=== PATIENT | female | born 1970 | race Caucasian/White ===

== ENCOUNTER 2016-11-29 08:16 | Day surgery (SDC) | payer OTHER ==
[2016-11-15 15:31] VITALS: BMI 22.3
[~2016-11-29 08:16] MED LIST: DEXAMETHASONE SOD PHOSPHATE 10 MG/ML 1 ML VIAL IV ONE; HEPARIN SODIUM,PORCINE 5,000 UNIT/ML 1 ML VIAL SQ ONE; HYDROmorphone 1 MG/ML 1 ML SYRINGE IVP PRN; LACTATED RINGERS 1,000 ML IV ONE; MIDAZOLAM 2 MG/2 ML VIAL IV PRN; ONDANSETRON 4 MG/2 ML VIAL IVP ONE; Pre Op ABX Message 1 EACH MISC MISCELLANE ONE
[2016-11-29] MEDS ORDERED: ALPRAZolam 0.5 MG TAB PO ONE (09:22)
[2016-11-29] MEDS ORDERED: LIDOCAINE 1% 20 ML VIAL (10MG/ML) FOR IV START INTRADERMA ONE (09:30)
[2016-11-29] MEDS ORDERED: ceFAZolin 2 GM in SODIUM CHLORIDE 0.9% 100 ML IVPB ONE (10:02)
[2016-11-29] MEDS ORDERED: HEPARIN SODIUM,PORCINE 5,000 UNIT/ML 1 ML VIAL SQ ONE (13:54)
[2016-11-29] MEDS ORDERED: PROPOFOL 10 MG/ML 20 ML VIAL IV ONE (14:20)
[2016-11-29] MEDS ORDERED: fentaNYL (PF) 50 MCG/ML 2 ML AMP ONE (14:20)
[2016-11-29] MEDS ORDERED: MIDAZOLAM 2 MG/2 ML VIAL ONE (14:20)
[2016-11-29] MEDS ORDERED: ePHEDrine 50 MG/ML 1 ML AMP ONE (14:20)
[2016-11-29] MEDS ORDERED: SUCCINYLCHOLINE CHLORIDE 100 MG/5 ML SYR IV ONE (14:20)
[2016-11-29] MEDS ORDERED: LIDOCAINE 1% INJ 10MG/ML (20 ML MDV) ONE (14:20)
[2016-11-29] MEDS ORDERED: LIDOCAINE 1% INJ 10MG/ML (20 ML MDV) SQ ONE ×2 (14:44)
[2016-11-29] MEDS ORDERED: LACTATED RINGERS 1,000 ML IV ONE (14:55)
--- NOTE | 2016-11-29 15:01 | P.OP ---
Date of Procedure: 11/29/16 Preoperative Diagnosis: cystic nodularity 12:00 right breast with FNA showing atypia Postoperative Diagnosis: Dense breast tissue Procedure(s) Performed: Right breast biopsy Anesthesia: OSWALDA Surgeon: Lauryn Flanagan Estimated Blood Loss (ml): 10 IV fluids (ml): 400 Pathology: other (Right breast tissue) Condition: stable Disposition: PACU Indications for Procedure: Cystic nodularity 12:00 right breast, FNA atypia Operative Findings: Dense breast tissue Description of Procedure: Patient was taken to the operating room and following induction of anesthesia the right breast was prepped and draped in a sterile fashion. An incision was made over the palpable. Incision was carried down through the tissue was excised. Coronary tract was identified and excised with the specimen. After assured that hemostasis was attained the wound was well irrigated. The incision was then closed using 4-0 Monocryl. The specimen was painted for orientation. Specimen was sent to pathology. Steri-Strips applied to the skin. Patient tolerated procedure in stable fashion. All instrument and sponge counts were correct at the end of the case. She'll be noted that the dissection was carried down to the pectoralis major muscle.
--- NOTE | 2016-11-29 15:03 | P.DS ---
Providers Attending physician: Lauryn Flanagan Primary care physician: Jami Davis Plan - Discharge Summary New Discharge Prescriptions: HYDROcodone/APAP 5-325MG [[place] 5] 1 - 2 each PO Q4H PRN #20 tab PRN Reason: Pain Discharge Medication List ALPRAZolam [Alprazolam] 0.5 mg PO DAILY PRN 11/15/16 [History] Hyoscyamine Sulfate [Levsin] 0.125 mg PO DAILY PRN 11/15/16 [History] Levothyroxine Sodium [Synthroid] 75 mcg PO DAILY 11/15/16 [History] HYDROcodone/APAP 5-325MG [[place] 5] 1 - 2 each PO Q4H PRN #20 tab 11/29/16 [Rx] Follow up Appointment(s)/Referral(s): Lauryn Flanagan MD [STAFF PHYSICIAN] - 1 Week Activity/Diet/Wound Care/Special Instructions: Do not drive today Do not drive if taking pain medication May shower after 48 hours Patient wear bra at all times Discharge Disposition: HOME SELF-CARE
[2016-11-29 15:17] VITALS: TEMP 98
[2016-11-29] MEDS ORDERED: KETOROLAC 30 MG/ML 1 ML VIAL IVP ONE (15:32)
[2016-11-29 15:56] VITALS: RESP 16
[2016-11-29] MEDS ORDERED: HYDROcodone/APAP 5-325MG 1 EACH TAB PO ONE (15:57)
[2016-11-29 16:26] VITALS: BP 103/67; PULSE 84
--- NOTE | 2016-11-30 07:23 | USB ---
Reason for exam: additional evaluation requested from prior study. History: Family history of breast cancer in maternal grandmother at age 70. Benign US breast aspiration single RT of the right breast, October 28, 2016. US Breast Limited RT Right breast ultrasound demonstrates a 1.4 x 0.51 x 1.20cm cystic lesion at 12 o'clock and a 0.71 x 0.51 x 1.08cm lesion at 1 o'clock. These results were verbally communicated with the patient and result sheet given to the patient on 11/29/16. ASSESSMENT: Benign, BI-RAD 2 RECOMMENDATION: Follow-up diagnostic mammogram of both breasts in 10 months. Back on schedule for September 2017.
== END 2016-11-29 16:36 | disposition home or self-care (01) ==
LOC: OR 08:16
PROVIDERS: ATTEND Surgery
DX: N60.31 Fibrosclerosis of right breast (principal); N60.81 Other benign mammary dysplasias of right breast; N62 Hypertrophy of breast; N60.21 Fibroadenosis of right breast; N63 Unspecified lump in breast; K21.9 Gastro-esophageal reflux disease without esophagitis; Z79.899 Other long term (current) drug therapy; Z88.8 Allergy status to other drugs, medicaments and biological substances; F17.200 Nicotine dependence, unspecified, uncomplicated
CPT/HCPCS: 19301; 81025; 88307; 76642; J2250; J1644; J1100; J0690; J2405; J2001; J3010; J1885; J0330; J2704

== ENCOUNTER → 2017-05-26 | Outpatient (CLI) | payer OTHER ==
--- NOTE | 2017-05-26 11:42 | MM ---
Reason for exam: follow-up at short interval from prior study. Last mammogram was performed 7 months ago. History: Family history of breast cancer in maternal grandmother at age 70. Benign cyst aspiration of the left breast, November 2016. Benign US breast aspiration single RT of the right breast, October 28, 2016. Benign excisional biopsy of the right breast, October 2016. Physical Findings: Nurse Summary: 1.5 x 1cm nodule in the left breast at 2 o'clock (nurse ts). MG 3D Diag Mammo W/Cad PABLO Bilateral CC and MLO view(s) were taken. Prior study comparison: November 29, 2016, right breast US breast limited RT. October 28, 2016, right breast MG diagnostic mammo RT wo CAD. October 04, 2016, bilateral MG 3d diag mammo w/cad PABLO. The breast tissue is extremely dense which could obscure a lesion on mammography. Previous mammotome biopsy in the right breast. Palpable markers in the left upper outer quadrant. No significant change seen from 09/30/16 These results were verbally communicated with the patient and result sheet given to the patient on 05/26/17. ASSESSMENT: Incomplete: need additional imaging evaluation, BI-RAD 0 RECOMMENDATION: Ultrasound of the left breast. (targeted to palpable)
--- NOTE | 2017-05-26 11:44 | USB ---
Reason for exam: additional evaluation requested from abnormal screening. History: Family history of breast cancer in maternal grandmother at age 70. Benign cyst aspiration of the left breast, November 2016. Benign US breast aspiration single RT of the right breast, October 28, 2016. Benign excisional biopsy of the right breast, October 2016. US Breast Limited LT Left breast ultrasound demonstrates a 2.4 x 2.1 x 0.9cm oval, cystic lesion at 12 o'clock, a 1.3 x 1.6 x 1.0cm oval, cystic lesion at 2 o'clock and a 1.5 x 1.7 x 1.1cm oval, cystic lesion at 3 o'clock. These results were verbally communicated with the patient and result sheet given to the patient on 05/26/17. ASSESSMENT: Benign, BI-RAD 2 RECOMMENDATION: Routine screening mammogram of both breasts in 1 year.
== END | disposition home or self-care (01) ==
LOC: RADMAMWWP 10:15
PROVIDERS: ATTEND Surgery
DX: N60.01 Solitary cyst of right breast (principal); N60.02 Solitary cyst of left breast; R92.8 Other abnormal and inconclusive findings on diagnostic imaging of breast
CPT/HCPCS: 76642; G0204; G0279

== ENCOUNTER → 2018-01-03 | Outpatient (CLI) | payer BC ==
[2018-01-03 11:10] LABS: T4, Free (Free Thyroxine) 1.2 ng/dL (0.78-2.19)
== END | disposition home or self-care (01) ==
LOC: LABWHC1 10:11
PROVIDERS: ATTEND Family Medicine
DX: E03.9 Hypothyroidism, unspecified (principal)
CPT/HCPCS: 36415; 84439; 84443

== ENCOUNTER → 2020-06-24 | Outpatient (CLI) | payer BC ==
--- NOTE | 2020-06-25 10:49 | MM ---
Reason for exam: screening (asymptomatic). Last mammogram was performed 3 years and 1 month ago. History: Family history of breast cancer in maternal grandmother at age 70. Benign cyst aspiration of the left breast, November 2016. Benign US breast aspiration single RT of the right breast, October 28, 2016. Benign excisional biopsy of the right breast, October 2016. Physical Findings: A clinical breast exam by your physician is recommended on an annual basis and results should be correlated with mammographic findings. MG 3D Screening Mammo W/Cad Bilateral CC and MLO view(s) were taken. Prior study comparison: May 26, 2017, bilateral MG 3d diag mammo w/cad PABLO. October 28, 2016, right breast MG diagnostic mammo RT wo CAD. The breast tissue is extremely dense which could obscure a lesion on mammography. Finding #1: There is a 20 mm equal density (isodense), oval mass in the upper inner quadrant of the left breast. Finding #2: There are typically benign calcifications in both breasts. Previous mammotome biopsy in the right breast. There is a chronic nodularity in the right breast is stable. ASSESSMENT: Incomplete: need additional imaging evaluation, BI-RAD 0 RECOMMENDATION: Special view mammogram of the left breast. If lesion persists on supplemental views, image directed ultrasound is recommended. [facility] will attempt to contact patient to return for supplemental views and ultrasound if indicated.
== END | disposition home or self-care (01) ==
LOC: RADMAMWWP 08:05
PROVIDERS: ATTEND Family Medicine
DX: Z12.31 Encounter for screening mammogram for malignant neoplasm of breast (principal)
CPT/HCPCS: 77063; 77067

== ENCOUNTER → 2020-07-06 | Outpatient (CLI) | payer BC ==
--- NOTE | 2020-07-06 13:23 | MM ---
Reason for exam: additional evaluation requested from abnormal screening. Last mammogram was performed less than 1 month ago. History: Family history of breast cancer in maternal grandmother at age 70. Benign cyst aspiration of the left breast, November 2016. Benign US breast aspiration single RT of the right breast, October 28, 2016. Benign excisional biopsy of the right breast, October 2016. Took hormonal contraceptives beginning at age 17. Physical Findings: Nurse did not find any significant physical abnormalities on exam. MG 3D Work Up W/Cad LT Spot compression CC, spot compression MLO, and LM view(s) were taken of the left breast. Prior study comparison: June 24, 2020, bilateral MG 3d screening mammo w/cad. May 26, 2017, bilateral MG 3d diag mammo w/cad PABLO. The breast tissue is heterogeneously dense. This may lower the sensitivity of mammography. A couple underlying circumscribed masses measuring up to 2.0cm at 11-1 o'clock. These results were verbally communicated with the patient and result sheet given to the patient on 07/06/20. ASSESSMENT: Incomplete: need additional imaging evaluation, BI-RAD 0 RECOMMENDATION: Ultrasound of the left breast.
--- NOTE | 2020-07-06 13:25 | USB ---
Reason for exam: additional evaluation requested from abnormal screening. History: Family history of breast cancer in maternal grandmother at age 70. Benign cyst aspiration of the left breast, November 2016. Benign US breast aspiration single RT of the right breast, October 28, 2016. Benign excisional biopsy of the right breast, October 2016. Took hormonal contraceptives beginning at age 17. US Breast Workup LT Left complete breast ultrasound includes all four quadrants, the retroareolar region and axilla. Finding demonstrates a 2.1 x 1.0 x 2.1cm cystic lesion at 2 o'clock and a 1.9 x 1.4 x 2.0cm cystic lesion at 11 o'clock, the largest to two. Multiple cystic areas. Patient's annual exam recommended to be performed in diagnostic clinic. These results were verbally communicated with the patient and result sheet given to the patient on 07/06/20. ASSESSMENT: Probably benign, BI-RAD 3 RECOMMENDATION: Follow-up diagnostic mammogram of both breasts in 1 year.
== END | disposition home or self-care (01) ==
LOC: RADMAMWWP 09:39
PROVIDERS: ATTEND Family Medicine
DX: R92.8 Other abnormal and inconclusive findings on diagnostic imaging of breast (principal)
CPT/HCPCS: 77061; 77065

== ENCOUNTER → 2021-10-11 | Outpatient (CLI) | payer BC ==
--- NOTE | 2021-10-11 11:50 | MM ---
Reason for exam: additional evaluation requested from prior study. Last mammogram was performed 1 year and 3 months ago. History: Patient is postmenopausal. Family history of breast cancer in maternal grandmother at age 70. Benign cyst aspiration of the left breast, November 2016. Benign US breast aspiration single RT of the right breast, October 28, 2016. Benign excisional biopsy of the right breast, October 2016. Took hormonal contraceptives beginning at age 17. Physical Findings: Nurse did not find any significant physical abnormalities on exam. MG 3D Diag Mammo W/Cad PABLO Bilateral CC and MLO view(s) were taken. Prior study comparison: July 06, 2020, left breast MG 3d work up w/cad LT. June 24, 2020, bilateral MG 3d screening mammo w/cad. The breast tissue is extremely dense which could obscure a lesion on mammography. Stable benign calcifications. There is no discrete abnormality. No significant new findings when compared with previous films. These results were verbally communicated with the patient and result sheet given to the patient on 10/11/21. ASSESSMENT: Benign, BI-RAD 2 RECOMMENDATION: Routine screening mammogram of both breasts in 1 year.
== END | disposition home or self-care (01) ==
LOC: RADMAMWWP 11:00
PROVIDERS: ATTEND Family Medicine
DX: R92.1 Mammographic calcification found on diagnostic imaging of breast (principal); Z80.3 Family history of malignant neoplasm of breast
CPT/HCPCS: 77062; 77066

== ENCOUNTER 2022-02-11 09:45 | Day surgery (SDC) | payer BC ==
[2022-02-09 09:09] VITALS: BMI 21.6
[~2022-02-11 09:45] MED LIST changes: -DEXAMETHASONE SOD PHOSPHATE 10 MG/ML 1 ML VIAL IV ONE; -HEPARIN SODIUM,PORCINE 5,000 UNIT/ML 1 ML VIAL SQ ONE; -HYDROmorphone 1 MG/ML 1 ML SYRINGE IVP PRN; -LACTATED RINGERS 1,000 ML IV ONE; +LACTATED RINGERS 1,000 ML IV SCH; +LIDOCAINE 1% (10MG/ML) FOR IV START INTRADERMA PRN; -MIDAZOLAM 2 MG/2 ML VIAL IV PRN; -ONDANSETRON 4 MG/2 ML VIAL IVP ONE; -Pre Op ABX Message 1 EACH MISC MISCELLANE ONE
[2022-02-11 10:34] VITALS: TEMP 97.4
[2022-02-11] MEDS ORDERED: PROPOFOL 10 MG/ML 20 ML VIAL IV ONE (11:25)
[2022-02-11] MEDS ORDERED: LIDOCAINE 1% INJ 10MG/ML (20 ML MDV) ONE (11:25)
--- NOTE | 2022-02-11 11:42 | P.PCN ---
Date of Procedure: 02/11/22 Procedure(s) Performed: BRIEF HISTORY: Patient is a 52-year-old pleasant female scheduled for an elective colonoscopy as a part of screening for colon cancer. PROCEDURE PERFORMED: Colonoscopy. PREOPERATIVE DIAGNOSIS: Screening for colorectal neoplasia. IV sedation per Anesthesia. PROCEDURE: After informed consent was obtained, the patient, was brought into the endoscopy unit. IV sedation was administered by Anesthesia under continuous monitoring. Digital rectal examination was normal. Initially the Olympus CF-160 flexible video colonoscope was then inserted in the rectum, gradually advanced into the cecum without any difficulty. Careful examination was performed as the scope was gradually being withdrawn. Ileocecal valve and the appendiceal orifice were visualized and appeared normal. Prep was excellent. Mucosa of the cecum, ascending colon, transverse colon, descending colon, sigmoid colon, and rectum appeared normal. Retroflexion was performed in the rectum and no lesions were seen. The patient tolerated the procedure well. IMPRESSION: Normal-appearing colon from rectum to cecum with no evidence of colorectal neoplasia . RECOMMENDATIONS: Findings of this examination were discussed with the patient his family. She was advised to have a repeat screening colonoscopy in 10 years.
[2022-02-11 11:48] VITALS: RESP 16
[2022-02-11 12:00] VITALS: BP 103/68; PULSE 65
== END 2022-02-11 12:20 | disposition home or self-care (01) ==
LOC: ORWHC2ENDO 09:45
PROVIDERS: ATTEND Internal Medicine Gastroenterology
DX: Z12.11 Encounter for screening for malignant neoplasm of colon (principal); F17.210 Nicotine dependence, cigarettes, uncomplicated; K58.9 Irritable bowel syndrome, unspecified; E07.9 Disorder of thyroid, unspecified; Z79.890 Hormone replacement therapy; Z79.899 Other long term (current) drug therapy; Z88.8 Allergy status to other drugs, medicaments and biological substances
CPT/HCPCS: 81025; J2001; J2704; G0121; 45378

== ENCOUNTER → 2023-04-21 | Outpatient (CLI) | payer BC ==
--- NOTE | 2023-04-23 19:16 | MR ---
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 Specialized thin s equences were obtained through the internal auditory canals. Pre-and post gadolinium sequences were obtained. MR contrast: IV Contrast: 6 cc Gadavist FINDINGS: The myers-white junctions, ventricular system, and cisterns appear unremarkable. Midline structures s how no abnormality. Diffusion-weighted imaging shows no evidence of restricted diffusion. The suscept ibility weighted images do not reveal any evidence for micro-hemorrhage. The bone marrow signal is within normal limits. Paranasal sinuses and mastoid air cells: Mild scattered paranasal sinus disease. Visualized orbits: Orbital contents are intact. After administration of gadolinium, no abnormal enhancement is seen. The internal auditory canal sequences demonstrate no significant irregularity. The 7th cranial nerve s, 8 cranial nerves, and cerebellar pontine angles appear unremarkable. After the administration mitul olinium, no abnormal enhancement is seen within the internal auditory canals. Vascular loop: None. IMPRESSION: Mild motion limited exam on the left renal sinus. 1. No evidence of intracranial mass nor acute/subacute CVA. 2. No evidence of internal auditory canal abnormality.
== END | disposition home or self-care (01) ==
LOC: RADMRIMAIN 14:05
PROVIDERS: ATTEND Otolaryngology
DX: H93.3X9 Disorders of unspecified acoustic nerve (principal); R51.9 Headache, unspecified
CPT/HCPCS: 70553

== ENCOUNTER → 2024-06-05 | Outpatient (CLI) | payer BC ==
--- NOTE | 2024-06-10 09:15 | MM ---
Reason for Exam: Screening (asymptomatic). Last mammogram was performed 2 year(s) and 8 month(s) ago. Patient History: Menarche at age 15. First Full-Term at age 23. Postmenopausal. Patient has history of breast feeding. Hormonal Contraceptives, from age 17 until age 31. 11/2016, Benign Cyst Aspiration on the left side. 10/2016, Benign Excisional Biopsy on the right side. 10/28/2016, Benign Cyst Aspiration on the right side. 11/27/2021, Bilateral Implants. Maternal grandmother had breast cancer, age 70. Risk Values: Rajani 5 year model risk: 1.1%. NCI Lifetime model risk: 8.2%. Prior Study Comparison: 06/24/2020 Bilateral Screening Mammogram, [facility]. 07/06/2020 Left Diagnostic Mammogram, [facility]. 10/11/2021 Bilateral Diagnostic Mammogram, [facility]. Tissue Density: The breasts are extremely dense, which lowers the sensitivity of mammography. Findings: Analyzed By CAD. Bilateral implants are intact. There is a calcified mass the approximate 11:00 position left breast. Additional views are recommended as well as ultrasound. Unremarkable right breast. Overall Assessment: Incomplete: need additional imaging evaluation, BI-RAD 0 Management: Diagnostic Mammogram of the left breast. . Patient should continue monthly self-breast exams. A clinical breast exam by your physician is recommended on an annual basis. This exam should not preclude additional follow-up of suspicious palpable abnormalities. Note on Rajani scores and lifetime risk: 1. A Rajani score greater than 3% is considered moderate risk. If this is the case, consider specialist referral to assess eligibility for a risk reducing agent. 2. If overall lifetime risk for the development of breast cancer is 20% or higher, the patient may qualify for future screening with alternating mammogram and breast MRI. Electronically signed and approved by: Wilfredo Hawkins M.D. Radiologis
== END | disposition home or self-care (01) ==
LOC: RADMAMWWP 14:54
PROVIDERS: ATTEND Family Medicine
DX: Z12.31 Encounter for screening mammogram for malignant neoplasm of breast (principal); R92.343 Mammographic extreme density, bilateral breasts; Z78.0 Asymptomatic menopausal state; Z80.3 Family history of malignant neoplasm of breast
CPT/HCPCS: 77063; 77067

== ENCOUNTER → 2024-06-14 | Outpatient (CLI) | payer BC ==
--- NOTE | 2024-06-14 14:22 | MM ---
Reason for Exam: Additional evaluation requested from abnormal screening. Last screening mammogram was performed less than 1 month ago. Patient History: Menarche at age 15. First Full-Term at age 23. Postmenopausal. Patient has history of breast feeding. Hormonal Contraceptives, from age 17 until age 31. 11/2016, Benign Cyst Aspiration on the left side. 10/2016, Benign Excisional Biopsy on the right side. 10/28/2016, Benign Cyst Aspiration on the right side. 11/27/2021, Bilateral Implants. Maternal grandmother had breast cancer, age 70. Risk Values: Rajani 5 year model risk: 1.1%. NCI Lifetime model risk: 8.2%. Prior Study Comparison: 07/06/2020 Left Diagnostic Mammogram, [facility]. 10/11/2021 Bilateral Diagnostic Mammogram, [facility]. 06/05/2024 Bilateral MG 3D screen mammo imp/cad., [facility]. Tissue Density: Left: The breasts are heterogeneously dense, which may obscure small masses. Findings: Analyzed By CAD. Persistent partially calcified 11 mm nodule left breast upper-outer quadrant 3 cm from the nipple. Ultrasound is recommended. Overall Assessment: Incomplete: need additional imaging evaluation, BI-RAD 0 Management: Diagnostic Breast Ultrasound of the left breast. . Results were given to the patient verbally at the time of exam. Patient should continue monthly self-breast exams. A clinical breast exam by your physician is recommended on an annual basis. This exam should not preclude additional follow-up of suspicious palpable abnormalities. Note on Rajani scores and lifetime risk: 1. A Rajani score greater than 3% is considered moderate risk. If this is the case, consider specialist referral to assess eligibility for a risk reducing agent. 2. If overall lifetime risk for the development of breast cancer is 20% or higher, the patient may qualify for future screening with alternating mammogram and breast MRI. Electronically signed and approved by: Wilfredo Hawkins M.D. Radiologis
--- NOTE | 2024-06-14 14:41 | USB ---
Reason for Exam: Additional evaluation requested from abnormal screening. Patient History: Menarche at age 15. First Full-Term at age 23. Postmenopausal. Patient has history of breast feeding. Hormonal Contraceptives, from age 17 until age 31. 11/2016, Benign Cyst Aspiration on the left side. 10/2016, Benign Excisional Biopsy on the right side. 10/28/2016, Benign Cyst Aspiration on the right side. 11/27/2021, Bilateral Implants. Maternal grandmother had breast cancer, age 70. Risk Values: Rajani 5 year model risk: 1.1%. NCI Lifetime model risk: 8.2%. Technique: Method: Targeted. Prior Study Comparison: 07/06/2020 Left Diagnostic Mammogram, [facility]. 10/11/2021 Bilateral Diagnostic Mammogram, [facility]. 06/05/2024 Bilateral MG 3D screen mammo imp/cad., [facility]. Findings: The upper section of the breast of the left breast, the axilla of the left breast and the retroareolar of the left breast were scanned. Complex cystic lesion left 11:00 position 3 cm from the nipple measuring 1.2 x 0.8 cm. Aspiration is recommended.. Overall Assessment: Suspicious, BI-RAD 4 Management: Aspiration of the left breast. A clinical breast exam by your physician is recommended on an annual basis and results should be correlated with mammographic findings. This exam should not preclude additional follow-up of suspicious palpable abnormalities. Results were given to the patient verbally at the time of exam. Electronically signed and approved by: Wilfredo Hawkins M.D. Radiologis
== END | disposition home or self-care (01) ==
LOC: RADMAMWWP 14:00
PROVIDERS: ATTEND Family Medicine
DX: R92.8 Other abnormal and inconclusive findings on diagnostic imaging of breast (principal); N60.02 Solitary cyst of left breast; Z78.0 Asymptomatic menopausal state; Z80.3 Family history of malignant neoplasm of breast
CPT/HCPCS: 77061; 77065

== ENCOUNTER → 2024-07-18 | Day surgery (SDC) | payer BC ==
--- NOTE | 2024-08-02 11:06 | MM ---
Reason for Exam: Post Procedure Mammogram. Last screening mammogram was performed 2 month(s) ago. Patient History: Menarche at age 15. First Full-Term at age 23. Postmenopausal. Patient has history of breast feeding. Hormonal Contraceptives, from age 17 until age 31. 11/2016, Benign Cyst Aspiration on the left side. 10/2016, Benign Excisional Biopsy on the right side. 10/28/2016, Benign Cyst Aspiration on the right side. 11/27/2021, Bilateral Implants. Maternal grandmother had breast cancer, age 70. Risk Values: Rajani 5 year model risk: 1.1%. NCI Lifetime model risk: 8.2%. Prior Study Comparison: 10/11/2021 Bilateral Diagnostic Mammogram, [facility]. 06/05/2024 Bilateral MG 3D screen mammo imp/cad., [facility]. 06/14/2024 Left US breast workup limited LT, [facility]. 06/14/2024 Left MG 3D work up w/cad LT, [facility]. Tissue Density: Left: The breasts are extremely dense, which lowers the sensitivity of mammography. Pathology Description: Location: 11 o'clock. Cyst Aspiration 1mL Clip - ButterflyThe ultrasound guided cyst aspiration procedure was explained to the patient. The risks, benefits, alternatives were discussed. An informed consent was then obtained. A time out was performed. The patient was placed in supine positioning for imaging and for the procedure. The 11:00 round 1.1 cm left breast cyst/mass is identified and targeted for aspiration. Underlying breast implant is noted. The skin was prepped with ChloraPrep and sterilely draped in usual sterile fashion. 5 ml 1% lidocaine was used as anesthetic into the skin and deeper breast tissue up to area of concern in the left 11 o'clock breast, 3 cm from nipple. Under ultrasound guidance, an 18-gauge spinal needle was advanced into the lesion. Prolonged aspiration yielded approximately 1 mL thick white/yellowish material. An oil cyst with internal inspissated material is suspected. The sample was labeled for laboratory analysis. A butterfly clip is deposited just adjacent to the lesion. Good hemostasis was obtained with direct pressure. Postprocedure mammogram: The patient was transferred to mammography for physician ordered post procedure mammogram for clip placement verification. The clip is in the expected region of the biopsy. The patient tolerated the procedure well without any immediate complication. The patient was discharged to home in stable condition. Post procedure mammogram shows clip just adjacent to the suspected oil cyst. IMPRESSION: Attempted ultrasound-guided left breast cyst aspiration. Approximately 1 mL of very thick white/yellowish material was returned. An oil cyst with inspissated internal content is suspected. Cytology pending. Pathology Results: Pathology and radiology were reviewed. Findings are discordant. LEFT BREAST, ASPIRATION: Hypocellular fluid with rare inflammatory cells and scattered microcalcification. Non-diagnostic for neoplasm (see note). Notes A 06/05/24 mammogram report states that there is a calcified mass at the approximate 11:00 position of the left breast. If there is clinical concern for malignancy, a core tissue biopsy can be obtained. Overall Assessment: Suspicious, BI-RAD 4 Assessment: MG diagnostic mammo LT wo CAD. - Left: Suspicious, BI-RAD 4. Management: Ultrasound-Guided Core Biopsy of the left breast. Electronically signed and approved by: Oscar Jerry M.D. Radiologist
== END ==
LOC: RADUSWWP 12:43
PROVIDERS: ATTEND Family Medicine
DX: N60.02 Solitary cyst of left breast (principal); R92.8 Other abnormal and inconclusive findings on diagnostic imaging of breast; Z78.0 Asymptomatic menopausal state; Z80.3 Family history of malignant neoplasm of breast
CPT/HCPCS: 88305; 77065; 76942; 19000; A4648

== ENCOUNTER → 2024-09-13 | Outpatient (CLI) | payer BC ==
[2024-09-13 13:49] VITALS: BP 116/85; PULSE 62; RESP 18; TEMP 97.9
--- NOTE | 2024-09-13 14:20 | P.GSCN ---
History of Present Illness Consult date: 09/13/24 Reason for Consult: nodule left breast Requesting physician: Jami Davis History of present illness: Dina is a 54 year old female status post bilateral mammogram on 06-05-24. This led to a left breast diagnostic mammogram and ultrasound on 06-14-24. A partilally calcified nodule and complex cyst were noted. A cyst aspiration was done on 07-18-24 and this was benign but felt to be discordant. She felt fullness in the left breast in the upper inner quadrant area near the area where the lesion was aspirated. Prior to her mammogram did not feel anything of concern in either breast. She has had a right breast biopsy in the past which was benign. This was in 2015. All implants that were placed in 2020. She is not complaining of any nipple discharge or skin changes. She is not complaining of any other lumps masses or nodules of concern in either breast. 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 caffiene: 2 cups/day nicotine: 5-6 cigarettes/day chocolate: daily BCP: about 20 years hormones: none Family History: maternal grandmother: breast cancer Hormonal History: menarche: 15 M1, breast fed: yes, age at first : 23 menopause: 51 Surgical History: right breast biopsy open D&C bilateral breast implant placement Medical History: hypothyroid/Gilbert's disease takes level thyroxine Social HIstory: nicotine: none alcohol: three times a week/ wine drugs: none Review of Systems - Constitutional Denies fever, Denies weight loss - EENT Eyes: denies blurred vision Ears: bilateral: tinnitus, deny: decreased hearing Ears, nose, mouth and throat: Denies dysphagia - Breasts bilateral: as per HPI - Cardiovascular Denies chest pain, Denies shortness of breath - Respiratory Denies cough, Denies 7 - Gastrointestinal Reports as per HPI - Genitourinary Genitourinary: Denies dysuria, Denies hematuria Menstruation: Reports postmenopausal - Musculoskeletal Reports as per HPI - Integumentary Denies rash, Denies unusual bruising - Neurological Denies headaches, Denies syncope - Psychiatric Reports as per HPI - Endocrine Endocrine Comment(s): hypothyroid Reports as per HPI - Hematologic/Lymphatic Reports as per HPI - Allergic/Immunologic Reports as per HPI, Reports seasonal allergies Past Medical History Past Medical History: Thyroid Disorder Additional Past Medical History / Comment(s): IBS History of Any Multi-Drug Resistant Organisms: None Reported Past Surgical History: Breast Surgery Additional Past Surgical History / Comment(s): COLONOSCOPY. EGD. D & C. BREAST AUGMENTATION 2021. right breast excisional 2015/ benign Past Anesthesia/Blood Transfusion Reactions: No Reported Reaction Past Psychological History: Anxiety Additional Psychological History / Comment(s): No medications Smoking Status: Current every day smoker Past Alcohol Use History: Daily, Occasional Additional Past Alcohol Use History / Comment(s): HAS SMOKED <1 PPD FOR PAST 20 plus YEARS. may have one glass of wine daily Past Drug Use History: None Reported - Past Family History Mother Family Medical History: No Reported History Medications and Allergies Home Medications Medication Instructions Recorded Confirmed Type Levothyroxine Sodium [Synthroid] 75 mcg PO DAILY 11/15/16 09/13/24 History L.acidoph,Paracasei, B.lactis 1 each PO DAILY 02/09/22 09/13/24 History [Probiotic] Multivitamins, Thera [Multivitamin 1 tab PO DAILY 02/09/22 09/13/24 History (formulary)] valACYclovir HCL [Valtrex] 500 mg PO DAILY PRN 02/09/22 09/13/24 History Allergies Allergy/AdvReac Type Severity Reaction Status Date / Time bupropion [From Wellbutrin] Allergy Rash/Hives Verified 09/13/24 13:46 Surgical - Exam Vital Signs Temp Pulse Resp BP Pulse Ox 97.9 F 62 18 116/85 100 09/13/24 13:47 09/13/24 13:47 09/13/24 13:47 09/13/24 13:47 09/13/24 13:47 - General no distress - Eyes normal ocular movement - ENT no hearing loss - Neck trachea midline - Respiratory normal respiratory effort, clear to auscultation - Cardiovascular Rhythm: regular Heart Sounds: normal: S1, S2 - Abdomen Abdomen: soft, non tender, no guarding, no rigid, no rebound - Integumentary normal turgor - Neurologic no disoriented, no combative - Musculoskeletal normal gait, normal posture - Psychiatric oriented to time, oriented to person, oriented to place, speech is normal, memory intact Breast Exam: BRA: 34C inspection: bilateral breast implants, scar right breast Right breast: Multi positional exam implant in place, fibrocystic changes, no dominant masses or nodules of concern Right axilla: No adenopathy of concern Left breast: Multi positional exam, implant in place, at the 12 o'clock position there is approximately a 1 cm area of increased nodularity near the areolar region no other dominant masses or nodules of concern Left axilla: No adenopathy of concern Results mammogram and ultrasound reviewed Assessment and Plan Assessment: Impression: Discordant left breast core biopsy Partially calcified nodule left breast Plan: Core biopsy calcified nodule left breast, if radiology is unable to do this consider operative resection CC: DR. Davis
== END ==
LOC: WWCWWP 13:29
PROVIDERS: ATTEND Surgery
DX: N63.20 Unspecified lump in the left breast, unspecified quadrant (principal); F17.210 Nicotine dependence, cigarettes, uncomplicated; Z80.3 Family history of malignant neoplasm of breast; Z98.890 Other specified postprocedural states; Z88.8 Allergy status to other drugs, medicaments and biological substances

== ENCOUNTER → 2024-09-26 | Day surgery (SDC) | payer BC ==
--- NOTE | 2024-10-02 09:42 | MM ---
Reason for Exam: Post Procedure Mammogram. Last screening mammogram was performed 4 month(s) ago. Patient History: Menarche at age 15. First Full-Term at age 23. Postmenopausal. Patient has history of breast feeding. Hormonal Contraceptives, from age 17 until age 31. 07/18/2024, US breast aspiration single LT on the Left side. 11/2016, Benign Cyst Aspiration on the left side. 10/2016, Benign Excisional Biopsy on the right side. 10/28/2016, Benign Cyst Aspiration on the right side. 11/27/2021, Bilateral Implants. Maternal grandmother had breast cancer, age 70. Risk Values: Rajani 5 year model risk: 1.1%. NCI Lifetime model risk: 8.2%. Prior Study Comparison: 10/11/2021 Bilateral Diagnostic Mammogram, [facility]. 06/05/2024 Bilateral MG 3D screen mammo imp/cad., [facility]. 06/14/2024 Left US breast workup limited LT, [facility]. 06/14/2024 Left MG 3D work up w/cad LT, [facility]. 07/18/2024 Left MG diagnostic mammo LT wo CAD., [facility]. Tissue Density: Left: The breasts are extremely dense, which lowers the sensitivity of mammography. Pathology Description: Location: 11 o'clock. Needle Type: Mammotome Cores: 1 Skin Nicks: 1 Gauge: 13 No clip placed The procedure of ultrasound guided core biopsy was explained to the patient. Benefits, alternatives, and risks were discussed. Discussion of possible breast prosthesis rupture was discussed. An informed consent was then obtained. A timeout was performed. The patient was placed in supine positioning for imaging and for the procedure. The overlying skin was prepped and draped in usual sterile fashion. Lidocaine was used as anesthetic into the skin and subcutaneous tissue up to area of concern in the left breast. A small skin rashida was made with surgical scalpel. Under ultrasound guidance, a 12-gauge vacuum assisted biopsy gun device was used to obtain one core sample. The patient's previous biopsy clip could be identified in the biopsy clip was left in lesion. Core marker was visualized.. The patient tolerated the procedure well without any immediate complication. The patient was kept in the radiology department for short stay after the procedure and then discharged home in stable condition. Postprocedure mammogram: The patient was transferred to mammography for physician ordered post procedure mammogram for clip placement verification. Post procedure mammogram demonstrates the clip in appropriate placement. Breast prosthesis was intact after completion of exam. Impression: Successful ultrasound guided core biopsy of area of concern in the left breast, full pathology results to follow. Recommendations: 1. Recommendations are pending pathology results. [facility], , 09/27/2024 8:29 AM. Pathology Results: Result: Benign, Fibrocystic change. Pathology and radiology were reviewed. Findings are concordant. LEFT BREAST, 11:00, ULTRASOUND GUIDED NEEDLE CORE BIOPSY: Fibrocystic changes including cyst wall with fibrosis and histiocytes consistent with cyst rupture and microcalcifications. Overall Assessment: Benign Assessment: MG diagnostic mammo LT wo CAD. - Left: Benign, BI-RAD 2. Management: Diagnostic Breast Ultrasound of the left breast in 6 months. Electronically signed and approved by: Milo Pruitt D.O. Radiologis
== END ==
LOC: RADUSWWP 12:40
PROVIDERS: ATTEND Surgery
DX: N60.32 Fibrosclerosis of left breast (principal); N60.02 Solitary cyst of left breast; R92.8 Other abnormal and inconclusive findings on diagnostic imaging of breast; Z78.0 Asymptomatic menopausal state; Z80.3 Family history of malignant neoplasm of breast
CPT/HCPCS: 77065; 88305

== ENCOUNTER → 2024-10-04 | Outpatient (CLI) | payer BC ==
[2024-10-04 10:13] VITALS: BP 113/74; PULSE 65; RESP 17; TEMP 98.5
--- NOTE | 2024-10-04 10:21 | P.PN ---
Subjective Progress Note Date: 10/04/24 History of Present Illness Consult date: 10/04/24 Reason for Consult: nodule left breast Requesting physician: Jami Davis History of present illness: Dina is a 54 year old female status post bilateral mammogram on 06-05-24. This led to a left breast diagnostic mammogram and ultrasound on 06-14-24. A partilally calcified nodule and complex cyst were noted. A cyst as piration was done on 07-18-24 and this was benign but felt to be discordant. She felt fullness in the left breast in the upper inner quadrant area near the area where the lesion was aspirated. Prior to her mammogram did not feel anything of concern in either breast. She has had a right breast biopsy in the past which was benign. This was in 2015. All implants that were placed in 2020. She is not complaining of any nipple discharge or skin changes. She is not complaining of any other lumps masses or nodules of concern in either breast. 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 left breast ultrasound guided core biopsy on 09-26-24 fibrocystic changes including cyst wall with fibrosis and cyst rupture/ personally reviewed and discussed with Dr. Hudson and felt to be benign concordant She tolerated the procedure without difficulty. caffiene: 2 cups/day nicotine: 5-6 cigarettes/day chocolate: daily BCP: about 20 years hormones: none Family History: maternal grandmother: breast cancer Hormonal History: menarche: 15 M1, breast fed: yes, age at first : 23 menopause: 51 Surgical History: right breast biopsy open D&C bilateral breast implant placement Medical History: hypothyroid/Gilbert's disease takes level thyroxine Social HIstory: nicotine: none alcohol: three times a week/ wine drugs: none Review of Systems - Constitutional Denies fever, Denies weight loss - EENT Eyes: denies blurred vision Ears: bilateral: tinnitus, deny: decreased hearing Ears, nose, mouth and throat: Denies dysphagia - Breasts bilateral: as per HPI - Cardiovascular Denies chest pain, Denies shortness of breath - Respiratory Denies cough - Gastrointestinal Reports as per HPI - Genitourinary Genitourinary: Denies dysuria, Denies hematuria Menstruation: Reports postmenopausal - Musculoskeletal Reports as per HPI - Integumentary Denies rash, Denies unusual bruising - Neurological Denies headaches, Denies syncope - Psychiatric Reports as per HPI - Endocrine Endocrine Comment(s): hypothyroid Reports as per HPI - Hematologic/Lymphatic Reports as per HPI - Allergic/Immunologic Reports as per HPI, Reports seasonal allergies Past Medical History Past Medical History: Thyroid Disorder Additional Past Medical History / Comment(s): IBS History of Any Multi-Drug Resistant Organisms: None Reported Past Surgical History: Breast Surgery Additional Past Surgical History / Comment(s): COLONOSCOPY. EGD. D & C. BREAST AUGMENTATION 2021. right breast excisional 2015/ benign Past Anesthesia/Blood Transfusion Reactions: No Reported Reaction Past Psychological History: Anxiety Additional Psychological History / Comment(s): No medications Smoking Status: Current every day smoker Past Alcohol Use History: Daily, Occasional Additional Past Alcohol Use History / Comment(s): HAS SMOKED <1 PPD FOR PAST 20 plus YEARS. may have one glass of wine daily Past Drug Use History: None Reported - Past Family History Mother Family Medical History: No Reported History Medications and Allergies Home Medications Medication Instructions Recorded Confirmed Type Levothyroxine Sodium [Synthroid] 75 mcg PO DAILY 11/15/16 09/13/24 History L.acidoph,Paracasei, B.lactis 1 each PO DAILY 02/09/22 09/13/24 History [Probiotic] Multivitamins, Thera [Multivitamin 1 tab PO DAILY 02/09/22 09/13/24 History (formulary)] valACYclovir HCL [Valtrex] 500 mg PO DAILY PRN 02/09/22 09/13/24 History Allergies Allergy/AdvReac Type Severity Reaction Status Date / Time bupropion [From Wellbutrin] Allergy Rash/Hives Verified 09/13/24 13:46 Surgical - Exam Vital Signs Temp Pulse Resp BP Pulse Ox 97.9 F 62 18 116/85 100 09/13/24 13:47 09/13/24 13:47 09/13/24 13:47 09/13/24 13:47 09/13/24 13:47 - General no distress - Eyes normal ocular movement - ENT no hearing loss - Neck trachea midline - Respiratory normal respiratory effort, clear to auscultation - Cardiovascular Rhythm: regular Heart Sounds: normal: S1, S2 - Abdomen Abdomen: soft, non tender, no guarding, no rigid, no rebound - Integumentary normal turgor - Neurologic no disoriented, no combative - Musculoskeletal normal gait, normal posture - Psychiatric oriented to time, oriented to person, oriented to place, speech is normal, memory intact Breast Exam: BRA: 34C inspection: bilateral breast implants, scar right breast Right breast: Multi positional exam implant in place, fibrocystic changes, no dominant masses or nodules of concern Right axilla: No adenopathy of concern Left breast: Multi positional exam, implant in place, at the 12 o'clock position there is approximately a 1 cm area of increased nodularity near the areolar region no other dominant masses or nodules of concern Left axilla: No adenopathy of concern Results mammogram and ultrasound reviewed Assessment and Plan Assessment: Impression: Discordant left breast core biopsy; repeat ultrasound core biopsy on 09-26-24 benign Partially calcified nodule left breast Plan: Core biopsy calcified nodule left breast, if radiology is unable to do this consider operative resection CC: DR. Davis Additional CC's: Jami Davis Objective - Vital Signs Vital signs: Intake & Output 10/03/24 10/04/24 10/04/24 18:59 06:59 18:59 Weight 57.606 kg - Psychiatric Psychiatric: Present: A&O x's 3, appropriate affect, intact judgment & insight - Additional findings Additional findings: Breast Exam: BRA: 34C Left breast: implant in place, at the 12 o'clock position there is approximately a 1 cm area of increased nodularity near the areolar region no other dominant masses or nodules of concern ( resolution of area of concern on prior exam no longer palpable lesion since biopsy) Assessment and Plan Assessment: Impression: Benign left breast core biopsy with complete resolution of prior palpable periareolar lesion. Plan: And is due for bilateral mammogram in 6 months would also do a left breast ultrasound at that time Follow-up after above radiographic studies Follow-up sooner any questions or concerns CC: DR. Elias
== END ==
LOC: WWCWWP 09:14
PROVIDERS: ATTEND Surgery
DX: N63.20 Unspecified lump in the left breast, unspecified quadrant (principal); F17.210 Nicotine dependence, cigarettes, uncomplicated; Z80.3 Family history of malignant neoplasm of breast; Z88.8 Allergy status to other drugs, medicaments and biological substances

== ENCOUNTER → 2025-06-10 | Outpatient (CLI) | payer BC ==
--- NOTE | 2025-06-10 12:14 | MM ---
Reason for Exam: Follow-up at short interval from prior study. Last screening mammogram was performed 12 month(s) ago. Patient History: Menarche at age 15. First Full-Term at age 23. Postmenopausal. Patient has history of breast feeding. Hormonal Contraceptives, from age 17 until age 31. 09/26/2024, Benign US biopsy breast VAD LT on the left side. 07/18/2024, US breast aspiration single LT on the Left side. 11/2016, Benign Cyst Aspiration on the left side. 10/2016, Benign Excisional Biopsy on the right side. 10/28/2016, Benign Cyst Aspiration on the right side. 11/27/2021, Bilateral Implants. Maternal grandmother had breast cancer, age 70. Risk Values: Rajani 5 year model risk: 1.4%. NCI Lifetime model risk: 10.1%. Tissue Density: The breasts are heterogeneously dense, which may obscure small masses. Findings: Bilateral retropectoral silicone implants are demonstrated. Microclip right breast from prior biopsy. An oil cyst calcification upper inner quadrant left breast likely corresponds to the aspirated and biopsied site. No significant change from prior exams. Overall Assessment: Incomplete: need additional imaging evaluation, BI-RAD 0 Management: Diagnostic Breast Ultrasound of the left breast. [facility], , 06/10/2025 12:09 PM. Electronically signed and approved by: Oscar Jerry M.D. Radiologist
--- NOTE | 2025-06-10 12:57 | USB ---
Reason for Exam: Follow-up at short interval from prior study. Patient History: Menarche at age 15. First Full-Term at age 23. Postmenopausal. Patient has history of breast feeding. Hormonal Contraceptives, from age 17 until age 31. 09/26/2024, Benign US biopsy breast VAD LT on the left side. 07/18/2024, US breast aspiration single LT on the Left side. 11/2016, Benign Cyst Aspiration on the left side. 10/2016, Benign Excisional Biopsy on the right side. 10/28/2016, Benign Cyst Aspiration on the right side. 11/27/2021, Bilateral Implants. Maternal grandmother had breast cancer, age 70. Risk Values: Rajani 5 year model risk: 1.4%. NCI Lifetime model risk: 10.1%. Technique: Method: Targeted. Prior Study Comparison: 06/14/2024 Left MG 3D work up w/cad LT, [facility]. 07/18/2024 Left MG diagnostic mammo LT wo CAD., [facility]. 09/26/2024 Left MG diagnostic mammo LT wo CAD., [facility]. Findings: The upper section of the breast of the left breast, the axilla of the left breast and the retroareolar of the left breast were scanned. Targeted ultrasound left breast 10:00 to 12:00 including scanning of the subareolar region and axilla. At the 11:00 position, 3 cm from the nipple, corresponding to the area of previous aspiration and biopsy, there is residual hypoechoic area with some associated calcifications, much smaller now with a collapsed appearance measuring 9 x 6 x 4 mm. At the 12:00 position, 1 cm from the nipple, there is a benign 7 mm cyst. Underlying breast implant noted. Prominent but nonenlarged left axillary lymph nodes with cortex measuring 2.6 mm thick, unchanged. No other solid or cystic lesion or axillary adenopathy. Overall Assessment: Benign, BI-RAD 2 Management: Screening Mammogram of both breasts in 1 year. A clinical breast exam by your physician is recommended on an annual basis and results should be correlated with mammographic findings. This exam should not preclude additional follow-up of suspicious palpable abnormalities. Results were given to the patient verbally at the time of exam. [facility], , 06/10/2025 12:48 PM. Electronically signed and approved by: Oscar Jerry M.D. Radiologist
== END | disposition home or self-care (01) ==
LOC: RADMAMWWP 11:27
PROVIDERS: ATTEND Surgery
DX: R92.8 Other abnormal and inconclusive findings on diagnostic imaging of breast (principal); R92.333 Mammographic heterogeneous density, bilateral breasts; Z78.0 Asymptomatic menopausal state; Z80.3 Family history of malignant neoplasm of breast; Z92.0 Personal history of contraception; Z98.82 Breast implant status
CPT/HCPCS: 77062; 77066

== ENCOUNTER → 2025-06-12 | Outpatient (CLI) | payer BC ==
[2025-06-12 11:43] VITALS: BP 143/85; PULSE 60; RESP 16; TEMP 98
--- NOTE | 2025-06-12 11:52 | P.PN ---
Subjective Progress Note Date: 06/12/25 Principal diagnosis: rsolved nodule left breast/fiborcystic breast changes 06-12-25 History of Present Illness nodule left breast Requesting physician: Jami Davis History of present illness: Dina is a 55 year old female seen in consultation on 10-04-2024 regarding the nodule in her left breast. Status post bilateral mammogram on 06-05-24. This led to a left breast diagnostic mammogram and ultrasound on 06-14-24. A partilally calcified nodule and complex cyst were noted. A cyst aspiration was done on 07-18-24 and this was benign but felt to be discordant. She felt fullness in the left breast in the upper inner quadrant area near the area where the lesion was aspirated. Prior to her mammogram did not feel anything of concern in either breast. She has had a right breast biopsy in the past which was benign. This was in 2015. All implants that were placed in 2020. She is not complaining of any nipple discharge or skin changes. She is not complaining of any other lumps masses or nodules of concern in either breast. 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 left breast ultrasound guided core biopsy on 09-26-24 fibrocystic changes including cyst wall with fibrosis and cyst rupture/ personally reviewed and discussed with Dr. Hudson and felt to be benign concordant She tolerated the procedure without difficulty. Following the biopsy/aspiration the area of nodularity in the breast resolved. She no longer feels any nodularity of concern in the left breast particularly, but no lesions in either breast of concern. She is not complaining of any nipple discharge or skin changes. She had a repeat bilateral mammogram and left breast ultrasound on 06-10-2025. The bilateral mammogram was BI-RADS 0 and diagnostic breast ultrasound of the left breast was recommended. This was performed the upper section of the breast on the left the axilla of the left breast in the retroareolar of the left breast were scanned. This revealed at the 11 o'clock position 3 cm from the nipple corresponding to the area of previous aspiration biopsy residual hypoechoic area with some associated calcifications much smaller with a collapsed appearance measuring 9 x 6 x 4 mm. At the 12 o'clock position 1 cm from the nipple there was a benign 7 mm cyst. Underlying breast implant was noted. Prominent but nonenlarged left axillary lymph node with cortex measuring 2.6 mm thick unchanged. This was felt to be BI-RADS 2 and a screening mammogram of both breasts in 1 year was recommended. caffiene: 2 cups/day nicotine: 5-6 cigarettes/day chocolate: daily BCP: about 20 years hormones: none Family History: maternal grandmother: breast cancer Hormonal History: menarche: 15 M1, breast fed: yes, age at first : 23 menopause: 51 Surgical History: right breast biopsy open D&C bilateral breast implant placement Medical History: hypothyroid/Gilbert's disease takes level thyroxine Social HIstory: nicotine: none alcohol: three times a week/ wine drugs: none Review of Systems - Constitutional Denies fever, Denies weight loss - EENT Eyes: denies blurred vision Ears: bilateral: tinnitus, deny: decreased hearing Ears, nose, mouth and throat: Denies dysphagia - Breasts bilateral: as per HPI - Cardiovascular Denies chest pain, Denies shortness of breath - Respiratory Denies cough - Gastrointestinal Reports as per HPI - Genitourinary Genitourinary: Denies dysuria, Denies hematuria Menstruation: Reports postmenopausal - Musculoskeletal Reports as per HPI - Integumentary Denies rash, Denies unusual bruising - Neurological Denies headaches, Denies syncope - Psychiatric Reports as per HPI - Endocrine Endocrine Comment(s): hypothyroid Reports as per HPI - Hematologic/Lymphatic Reports as per HPI - Allergic/Immunologic Reports as per HPI, Reports seasonal allergies Past Medical History Past Medical History: Thyroid Disorder Additional Past Medical History / Comment(s): IBS History of Any Multi-Drug Resistant Organisms: None Reported Past Surgical History: Breast Surgery Additional Past Surgical History / Comment(s): COLONOSCOPY. EGD. D & C. BREAST AUGMENTATION 2021. right breast excisional 2015/ benign Past Anesthesia/Blood Transfusion Reactions: No Reported Reaction Past Psychological History: Anxiety Additional Psychological History / Comment(s): No medications Smoking Status: Current every day smoker Past Alcohol Use History: Daily, Occasional Additional Past Alcohol Use History / Comment(s): HAS SMOKED <1 PPD FOR PAST 20 plus YEARS. may have one glass of wine daily Past Drug Use History: None Reported - Past Family History Mother Family Medical History: No Reported History Medications and Allergies Home Medications Medication Instructions Recorded Confirmed Type Levothyroxine Sodium [Synthroid] 75 mcg PO DAILY 11/15/16 09/13/24 History L.acidoph,Paracasei, B.lactis 1 each PO DAILY 02/09/22 09/13/24 History [Probiotic] Multivitamins, Thera [Multivitamin 1 tab PO DAILY 02/09/22 09/13/24 History (formulary)] valACYclovir HCL [Valtrex] 500 mg PO DAILY PRN 02/09/22 09/13/24 History Allergies Allergy/AdvReac Type Severity Reaction Status Date / Time bupropion [From Wellbutrin] Allergy Rash/Hives Verified 09/13/24 13:46 Objective - Vital Signs Vital signs: Intake & Output 06/11/25 06/12/25 06/12/25 18:59 06:59 18:59 Weight 61.235 kg - Constitutional General appearance: Present: cooperative - EENT Eyes: Present: EOMI ENT: Present: hearing grossly normal - Neck Neck: Present: normal ROM - Respiratory Respiratory: bilateral: CTA - Cardiovascular Rhythm: regular Heart sounds: normal: S1, S2 - Integumentary Integumentary: Present: normal turgor - Musculoskeletal Musculoskeletal: Present: gait normal - Psychiatric Psychiatric: Present: A&O x's 3, appropriate affect, intact judgment & insight - Additional findings Additional findings: Breast Exam: BRA: 34C inspection: bilateral breast implants, scar right breast Right breast: Multi positional exam implant in place, fibrocystic changes, no dominant masses or nodules of concern Right axilla: No adenopathy of concern Left breast: Multi positional exam, implant in place, at the 12 o'clock position there was prior an approximately a 1 cm area of increased nodularity near the areolar region resolved no other dominant masses or nodules of concern Left axilla: No adenopathy of concern Assessment and Plan Assessment: Impression: Benign left breast core biopsy with complete resolution of prior palpable periareolar lesion. bilateral mammogram and left breast ultrasound on 06-10-25 BIRAD 2 Plan: And is due for bilateral mammogram in May 2026 Follow-up after above radiographic studies Follow-up sooner any questions or concerns CC: DR. Elias
== END ==
LOC: WWCWWP 11:24
PROVIDERS: ATTEND Surgery
DX: N63.0 Unspecified lump in unspecified breast (principal); F17.200 Nicotine dependence, unspecified, uncomplicated; Z88.8 Allergy status to other drugs, medicaments and biological substances